=== PATIENT | female | born 1980 | race Caucasian/White ===

== ENCOUNTER 2016-11-23 00:42 | Emergency (ER) | payer OTHER ==
[~2016-11-23] VITALS: Ht 157.5 cm; Wt 73.0 kg
[~2016-11-23 00:42] MED LIST: *ANUSOI RE; ACET500C OR; COLA100C2 OR; IBUP600T OR; MILKSUS OR; lanolin cream; prenatal vit PO
[2016-11-23 00:47] VITALS: BP 107/85
[2016-11-23 02:08] LABS: BASO % 0.2 % (0.0-1.0); EOS # 0.2 K/mm3 (0.0-0.50); EOS % 1.6 % (0.0-3.0); LARGE UNSTAINED CELL # 0.1 K/mm3 (0.0-0.4); LARGE UNSTAINED CELL % 0.8 % (0.0-4.0); LYMPH # 1.6 K/mm3 (1.5-4.5); LYMPH % 11.6 % (24.0-44.0); MEAN CORPUSCULAR HEMOGLOBIN 30.3 pg (27.0-33.0); MEAN CORPUSCULAR HGB CONC 34.7 g/dl (32.0-36.5); MEAN CORPUSCULAR VOLUME 87.3 fl (80.0-96.0); MONO # 0.7 K/mm3 (0.0-0.8); MONO % 5.1 % (0.0-5.0); NEUTROPHILS # 10.6 K/mm3 (1.8-7.7); NEUTROPHILS % 80.8 % (36.0-66.0); PLATELET COUNT, AUTOMATED 191 k/mm3 (150-450); RED CELL DISTRIBUTION WIDTH 12.3 % (11.5-14.5); WHITE BLOOD COUNT 13.1 K/mm3 (4.0-10.0)
[2016-11-23 02:30] LABS: CONTROL LINE HCG INT CTR LINE PRESENT
[2016-11-23 02:38] LABS: ALBUMIN 4.1 GM/DL (3.2-5.2); ALBUMIN/GLOBULIN RATIO 1.14 (1.00-1.93); ALKALINE PHOSPHATASE 102 U/L (45-117); ALT/SGPT 86 U/L (12-78); AMYLASE 19 U/L (25-115); ANION GAP 7 MEQ/L (8-16); AST/SGOT 101 U/L (15-37); BILIRUBIN,DIRECT 0.4 MG/DL (0.0-0.2); BLOOD UREA NITROGEN 19 MG/DL (7-18); CARBON DIOXIDE LEVEL 29 MEQ/L (21-32); CHLORIDE LEVEL 105 MEQ/L (98-107); CREATININE FOR GFR 0.85 MG/DL (0.55-1.02); GLOMERULAR FILTRATION RATE > 60.0 (>60); GLUCOSE, FASTING 102 MG/DL (70-105); SODIUM LEVEL 141 MEQ/L (136-145); TOTAL PROTEIN 7.7 GM/DL (6.4-8.2)
--- NOTE | 2016-11-23 04:00 | REPUSA ---
CLINICAL HISTORY: Abdominal pain. TECHNIQUE: Realtime sonographic images were obtained in multiple projections. COMMENTS: The liver is of normal size, parenchyma demonstrates normal echogenicity. No discrete hepatic mass is seen. There is no intra or extrahepatic biliary ductal dilatation. CBD measures 4.3 mm . The gallbladder is physiologically distended with a large number of tiny gallstones. The gallbladder wall is not thicke lamar and the wall thickness measuring 2.4 mm and there is no pericholecystic fluid. There is no abdomi nal ascites. The right kidney measures 11.1x5.2x4.3 cm , free of hydronephrosis. IMPRESSION: Cholelithiasis. Thank you for your kind referral of this patient.
[2016-12-25] MEDS ORDERED: IBUP-1114 PO (08:17)
== END 2016-11-23 04:52 | disposition home or self-care (01) ==
LOC: M ED 00:42
DX: K80.20 Calculus of gallbladder without cholecystitis without obstruction (principal)

== ENCOUNTER 2017-01-01 07:18 | Day surgery (SDC) | payer OTHER ==
[~2017-01-01] VITALS: Ht 157.5 cm; Wt 68.5 kg
[~2017-01-01 07:18] MED LIST changes: +IBUP-1114 PO
[2017-01-01] MEDS ORDERED: PROPOFOL 200 MG/20 ML VIAL As Ordered ONE (07:54)
[2017-01-01] MEDS ORDERED: LIDOCAINE 2% INJ 100 MG/5 ML SDV (FOR ANES.) As Ordered ONE (07:54)
[2017-01-01] MEDS ORDERED: dexameTHASONE 4 MG/ML 1ML VIAL (J1100) As Ordered ONE (07:54)
[2017-01-01] MEDS ORDERED: ONDANSETRON 4MG/2ML VIAL (J2405) As Ordered ONE ×2 (07:54→10:39)
[2017-01-01] MEDS ORDERED: GLYCOPYRROLATE INJ 0.2 MG/ML 2 ML VIAL As Ordered ONE (07:54)
[2017-01-01] MEDS ORDERED: MIDAZOLAM INJ 2 MG/2 ML VIAL (J2250) As Ordered ONE (07:54)
[2017-01-01] MEDS ORDERED: fentaNYL 100 MCG/2 ML INJECTION (J3010) As Ordered ONE (07:54)
[2017-01-01] MEDS ORDERED: ROCURONIUM BROMIDE 50 MG/5 ML VIAL/SYRINGE As Ordered ONE (07:54)
[2017-01-01] MEDS ORDERED: NEOSTIGMINE 10 MG/10 ML VIAL (J2710) As Ordered ONE (07:54)
[2017-01-01] MEDS ORDERED: LR 1,000 ML IV SCH ×2 (08:00→11:45)
[2017-01-01 08:08] LABS: CONTROL LINE UCG INT CTR LINE PRESENT
[2017-01-01] MEDS ORDERED: BUPIVACAINE/EPIN 0.25% 30 ML VIAL As Ordered ONE (09:12)
[2017-01-01] MEDS ORDERED: HYDROmorphone HCL 2 MG/ML 1ML VIAL (J1170) As Ordered ONE (09:56)
[2017-01-01] MEDS ORDERED: METOCLOPRAMIDE INJ 10MG/2ML VIAL (J2765) As Ordered ONE (10:05)
[2017-01-01] MEDS ORDERED: KETOROLAC 60 MG/2 ML VIAL (J1885) As Ordered ONE (10:25)
[2017-01-01] MEDS ORDERED: HYDROmorphone HCL 1 MG/ML SYRINGE (J1170) As Ordered ONE (10:39)
[2017-01-01] MEDS ORDERED: METOCLOPRAMIDE INJ 10MG/2ML VIAL (J2765) IV PRN (11:45)
[2017-01-01] MEDS ORDERED: fentaNYL 100 MCG/2 ML INJECTION (J3010) IV PRN (11:45)
[2017-01-01] MEDS ORDERED: PERCOCET 5MG/325MG TAB PO PRN (11:45)
[2017-01-01] MEDS ORDERED: NORCO, ANEXSIA 5/325MG TABLET (HYDROcodone/ACETAMINOPHEN) PO PRN (11:45)
[2017-01-01] MEDS ORDERED: ONDANSETRON 4MG/2ML VIAL (J2405) IV PRN (11:45)
[2017-01-01] MEDS ORDERED: HYDROmorphone HCL 1 MG/ML SYRINGE (J1170) IV PRN (11:45)
[2017-01-01 13:00] VITALS: BP 107/57
--- NOTE | 2017-01-01 16:25 | RO ---
DATE OF PROCEDURE: 01/01/2017 PREOPERATIVE DIAGNOSIS: Symptomatic cholelithiasis. POSTOPERATIVE DIAGNOSIS: Symptomatic cholelithiasis. PROCEDURE: Laparoscopic cholecystectomy. SURGEON: Dr. Miguel A Moreno BALING MACHINE OPERATOR: Dr. Connors ANESTHESIA: General. ESTIMATED BLOOD LOSS: 5mL. COMPLICATIONS: None. INDICATIONS FOR PROCEDURE: The patient is a 36-year-old female who presents with persistent right upper quadrant abdominal pain and found to have symptomatic cholelithiasis. Recommendation is to proceed with laparoscopic possible open cholecystectomy. Risks and benefits of procedure not limited to but including bleeding, infection, hernia formation, damage to surrounding structures and need for further surgery were discussed in detail with the patient. Informed consent was obtained and procedure was planned. DESCRIPTION OF PROCEDURE: The patient was brought back to operating room #6. After sufficient sedation, the abdomen was sterilely prepped and draped. Next, a time-out was done to confirm proper patient, proper procedure. Following that, a stab incision was made in the left upper quadrant, Veress needle was inserted and the abdomen was insufflated to 15 mmHg. Next, a 5 mm Optiview port was used to gain access to the abdomen just inferior to the umbilicus. Once the abdomen was entered, Veress needle site was examined. There were no signs of injury. Veress needle was then removed. 10 mm port placed subxiphoid, two 5 mm ports in the right upper quadrant. Fundus of the gallbladder was grasped, elevated up towards the right shoulder. Cystic duct and cystic artery were dissected free using a combination of blunt and sharp dissection. Once they were both clearly identified, they wee both doubly clipped and cut. Gallbladder was then removed from the gallbladder fossa using electrocautery and brought out through the subxiphoid port site in a 10 mm EndoCatch bag. Right upper quadrant was then examined one last time to confirm hemostasis. There were no signs of any bleeding. The ports were then removed, the abdomen was desufflated. Skin incisions were closed with #4-0 Vicryl subcuticular sutures. The abdomen was cleaned and dried. Steri-Strips, 4x4 and tape were applied thus ending procedure.
== END 2017-01-01 13:31 | disposition home or self-care (01) ==
LOC: M SDC 07:18
PROVIDERS: ATTEND Surgery
DX: K80.18 Calculus of gallbladder with other cholecystitis without obstruction (principal); F41.9 Anxiety disorder, unspecified; Z91.013 Allergy to seafood; Z79.899 Other long term (current) drug therapy
CPT/HCPCS: 47562; 84703; 88304; J0690; J1170; J1885; J2250; J2405; J2710; J2765; J3010

== ENCOUNTER → 2021-12-16 | Outpatient (CLI) | payer OTHER | LOC: M RAD 17:56 | PROVIDERS: ATTEND Physician Assistant Medical | DX: M77.31 Calcaneal spur, right foot (principal) ==

== ENCOUNTER → 2022-02-05 | Outpatient (CLI) | payer OTHER | LOC: M WHC 16:24 | PROVIDERS: ATTEND Nurse Practitioner Adult Health | DX: Z12.31 Encounter for screening mammogram for malignant neoplasm of breast (principal) ==

== ENCOUNTER → 2022-05-15 | Outpatient (REF) | payer OTHER ==
[2022-05-15 13:45] LABS: HEMATOCRIT 40.8 % (36.0-47.0); HEMOGLOBIN 13.4 g/dl (12.0-15.5); MEAN CORPUSCULAR HEMOGLOBIN 29.9 pg (27.0-33.0); MEAN CORPUSCULAR HGB CONC 32.8 g/dl (32.0-36.5); MEAN CORPUSCULAR VOLUME 91.1 fl (80.0-96.0); PLATELET COUNT, AUTOMATED 232 10^3/uL (150-450); RED BLOOD COUNT 4.48 10^6/uL (4.00-5.40); WHITE BLOOD COUNT 5.8 10^3/uL (4.0-10.0)
[2022-05-15 13:56] LABS: ALBUMIN 3.9 G/DL (3.2-5.2); ALKALINE PHOSPHATASE 76 U/L (46-116); ALT/SGPT 29 U/L (7.0-40); AST/SGOT 31 U/L (<34); BILIRUBIN,TOTAL 1.1 MG/DL (0.3-1.2); BLOOD UREA NITROGEN 16 MG/DL (9-23); CALCIUM LEVEL 9.9 MG/DL (8.5-10.1); CARBON DIOXIDE LEVEL 28 MMOL/L (20-31); CHLORIDE LEVEL 107 MMOL/L (98-107); CHOLESTEROL LEVEL 201 MG/DL (<200); CHOLESTEROL RISK RATIO 2.81 (<5); CREATININE FOR GFR 0.81 MG/DL (0.55-1.30); GLOMERULAR FILTRATION RATE > 60.0 (>58); GLUCOSE, FASTING 83 MG/DL (60-100); HDL CHOLESTEROL 71.3 MG/DL (>40); LDL CHOLESTEROL 114.3 MG/DL (<100); NON-HDL-C 130 MG/DL; POTASSIUM SERUM 4.9 MMOL/L (3.5-5.1); SODIUM LEVEL 138 MMOL/L (136-145); THYROID STIMULATING HORMONE 13.528 uIU/ML (0.55-4.78); TOTAL 25(OH) VITAMIN D 27.8 NG/ML (20.0-100.0); TOTAL PROTEIN 7.1 G/DL (5.7-8.2); TRIGLYCERIDES LEVEL 77 MG/DL (<150)
== END ==
LOC: M LABDRWAD 12:46
PROVIDERS: ATTEND Nurse Practitioner Adult Health
DX: Z00.00 Encounter for general adult medical examination without abnormal findings (principal); Z13.21 Encounter for screening for nutritional disorder; Z13.220 Encounter for screening for lipoid disorders; Z13.29 Encounter for screening for other suspected endocrine disorder

== ENCOUNTER → 2022-06-11 | Outpatient (REF) | payer OTHER | LOC: M SFHCWAGY 13:13 | PROVIDERS: ATTEND Nurse Practitioner Family | DX: Z12.4 Encounter for screening for malignant neoplasm of cervix (principal) | CPT/HCPCS: 87624; G0123 ==

== ENCOUNTER → 2022-07-27 | Outpatient (REF) | payer OTHER | LOC: M SFHCADAM 07:10 | PROVIDERS: ATTEND Nurse Practitioner Adult Health | DX: E03.9 Hypothyroidism, unspecified (principal) ==

== ENCOUNTER → 2022-09-24 | Outpatient (REF) | payer OTHER | LOC: M SFHCADAM 08:29 | PROVIDERS: ATTEND Nurse Practitioner Adult Health | DX: E03.9 Hypothyroidism, unspecified (principal) ==

== ENCOUNTER → 2022-12-23 | Outpatient (CLI) | payer OTHER ==
[2022-12-23 08:01] LABS: HEMATOCRIT 40.9 % (36.0-47.0); HEMOGLOBIN 13.6 g/dl (12.0-15.5); MEAN CORPUSCULAR HEMOGLOBIN 29.6 pg (27.0-33.0); MEAN CORPUSCULAR HGB CONC 33.3 g/dl (32.0-36.5); MEAN CORPUSCULAR VOLUME 88.9 fl (80.0-96.0); PLATELET COUNT, AUTOMATED 261 10^3/uL (150-450); WHITE BLOOD COUNT 7.4 10^3/uL (4.0-10.0)
[2022-12-23 08:26] LABS: ALBUMIN 4.1 G/DL (3.2-5.2); ALKALINE PHOSPHATASE 77 U/L (46-116); ALT/SGPT 22 U/L (7.0-40); AST/SGOT 20 U/L (<34); BILIRUBIN,TOTAL 0.8 MG/DL (0.3-1.2); BLOOD UREA NITROGEN 15 MG/DL (9-23); CALCIUM LEVEL 9.3 MG/DL (8.5-10.1); CARBON DIOXIDE LEVEL 26 MMOL/L (20-31); CHLORIDE LEVEL 108 MMOL/L (98-107); CREATININE FOR GFR 0.81 MG/DL (0.55-1.30); GLOMERULAR FILTRATION RATE > 60.0 (>58); GLUCOSE, FASTING 82 MG/DL (60-100); POTASSIUM SERUM 4.7 MMOL/L (3.5-5.1); SODIUM LEVEL 139 MMOL/L (136-145); TOTAL PROTEIN 7.4 G/DL (5.7-8.2)
[2022-12-23 08:28] LABS: THYROID STIMULATING HORMONE 6.339 uIU/ML (0.55-4.78)
== END ==
LOC: M LAB 07:30
PROVIDERS: ATTEND Nurse Practitioner Adult Health
DX: Z00.00 Encounter for general adult medical examination without abnormal findings (principal); E03.9 Hypothyroidism, unspecified; Z13.21 Encounter for screening for nutritional disorder

== ENCOUNTER → 2023-01-21 | Outpatient (REF) | payer OTHER | LOC: M SFHCPLAZ 13:28 | PROVIDERS: ATTEND Student in an Organized Health Care Education/Training Program | DX: Z53.9 Procedure and treatment not carried out, unspecified reason (principal) ==

== ENCOUNTER → 2023-01-21 | Outpatient (CLI) | payer OTHER ==
[2023-01-23 12:09] LABS: IgG P18 AB Absent (.); IgG P23 AB Absent (.); IgG P28 AB Absent (.); IgG P30 AB Absent (.); IgG P39 AB Absent (.); IgG P41 AB Absent (.); IgG P45 AB Absent (.); IgG P66 AB Absent (.); IgG P93 AB Absent (.); IgM P23 AB Absent (.); IgM P39 AB Absent (.); IgM P41 AB Absent (.); LYME IgG WB INTERPRETATION Negative (.); LYME IgM WB INTERPRETATION Negative (.)
== END ==
LOC: M PLALAB 13:35
PROVIDERS: ATTEND Student in an Organized Health Care Education/Training Program
DX: Z11.9 Encounter for screening for infectious and parasitic diseases, unspecified (principal); W57.XXXS Bitten or stung by nonvenomous insect and other nonvenomous arthropods, sequela

== ENCOUNTER → 2023-03-01 | Outpatient (CLI) | payer OTHER | LOC: M WHC 09:02 | PROVIDERS: ATTEND Nurse Practitioner Family | DX: Z12.31 Encounter for screening mammogram for malignant neoplasm of breast (principal) ==

== ENCOUNTER → 2023-03-01 | Outpatient (CLI) | payer OTHER | LOC: M PLALAB 10:09 | PROVIDERS: ATTEND Nurse Practitioner Adult Health | DX: E03.9 Hypothyroidism, unspecified (principal) ==

== ENCOUNTER → 2023-06-04 | Outpatient (CLI) | payer OTHER | LOC: M PLALAB 16:00 | PROVIDERS: ATTEND Nurse Practitioner Adult Health | DX: E03.9 Hypothyroidism, unspecified (principal) ==

== ENCOUNTER → 2023-11-03 | Outpatient (CLI) | payer OTHER | LOC: M PLALAB 16:15 | PROVIDERS: ATTEND Nurse Practitioner Adult Health | DX: E03.9 Hypothyroidism, unspecified (principal) ==

== ENCOUNTER → 2024-03-13 | Outpatient (CLI) | payer BC | LOC: M WHC 09:57 | PROVIDERS: ATTEND Nurse Practitioner Family | DX: Z12.31 Encounter for screening mammogram for malignant neoplasm of breast (principal) ==

== ENCOUNTER → 2024-05-08 | Outpatient (CLI) | payer BC ==
[2024-05-08 19:10] LABS: FREE T4 1.54 NG/DL (0.89-1.76); THYROID STIMULATING HORMONE 3.176 uIU/ML (0.55-4.78)
== END ==
LOC: M PLALAB 15:01
PROVIDERS: ATTEND Nurse Practitioner Family
DX: E03.9 Hypothyroidism, unspecified (principal)

== ENCOUNTER → 2024-05-11 | Outpatient (CLI) | payer BC ==
[2024-05-11 10:49] LABS: HEMATOCRIT 41.8 % (36.0-47.0); MEAN CORPUSCULAR HEMOGLOBIN 30.2 pg (27.0-33.0); MEAN CORPUSCULAR HGB CONC 33.5 g/dl (32.0-36.5); MEAN CORPUSCULAR VOLUME 90.3 fl (80.0-96.0); PLATELET COUNT, AUTOMATED 287 10^3/uL (150-450); RED BLOOD COUNT 4.63 10^6/uL (4.00-5.40); WHITE BLOOD COUNT 8.8 10^3/uL (4.0-10.0)
[2024-05-11 10:53] LABS: ALBUMIN 3.8 G/DL (3.2-5.2); ALKALINE PHOSPHATASE 86 U/L (35-104); ALT/SGPT 18 U/L (7.0-40); AST/SGOT 13 U/L (<34); BILIRUBIN,TOTAL 0.4 MG/DL (0.3-1.2); BLOOD UREA NITROGEN 23 MG/DL (9-23); CALCIUM LEVEL 9.8 MG/DL (8.5-10.1); CARBON DIOXIDE LEVEL 26 MMOL/L (20-31); CHLORIDE LEVEL 107 MMOL/L (98-107); CHOLESTEROL LEVEL 176 MG/DL (<200); CREATININE FOR GFR 0.84 MG/DL (0.55-1.30); GLOMERULAR FILTRATION RATE > 60.0 (>58); GLUCOSE, FASTING 87 MG/DL (60-100); HDL CHOLESTEROL 51.7 MG/DL (>40); LDL CHOLESTEROL 112.9 MG/DL (<100); NON-HDL-C 124.3 MG/DL; POTASSIUM SERUM 4.8 MMOL/L (3.5-5.1); SODIUM LEVEL 141 MMOL/L (136-145); TOTAL PROTEIN 7.3 G/DL (5.7-8.2); TRIGLYCERIDES LEVEL 57 MG/DL (<150)
[2024-05-11 10:54] LABS: THYROID STIMULATING HORMONE 5.465 uIU/ML (0.55-4.78)
[2024-05-11 10:55] LABS: FERRITIN 27.6 NG/ML (7.3-270.7); FREE T4 1.65 NG/DL (0.89-1.76)
== END ==
LOC: M PLALAB 07:24
PROVIDERS: ATTEND Nurse Practitioner Adult Health
DX: Z00.00 Encounter for general adult medical examination without abnormal findings (principal)

== ENCOUNTER → 2025-03-19 | Outpatient (CLI) | payer BC ==
[2025-03-19 18:20] LABS: FREE T4 1.62 NG/DL (0.89-1.76)
== END ==
LOC: M PLALAB 14:45
PROVIDERS: ATTEND Nurse Practitioner Family
DX: E03.9 Hypothyroidism, unspecified (principal)